=== PATIENT | female | born 2000 | race Hispanic/Latino ===

== ENCOUNTER 2019-04-28 19:53 | Emergency (ER) | payer MEDICAID, OTHER ==
[2019-04-28] MEDS ORDERED: IBUPROFEN 800 MG TAB ONE (21:04)
== END 2019-04-28 21:21 | disposition home or self-care (01) ==
LOC: EDH 19:53
DX: S16.1XXA Strain of muscle, fascia and tendon at neck level, initial encounter (principal); V49.49XA Driver injured in collision with other motor vehicles in traffic accident, initial encounter; Y93.89 Activity, other specified; Y92.89 Other specified places as the place of occurrence of the external cause; Y99.8 Other external cause status
CPT/HCPCS: 99282